=== PATIENT | male | born 1985 | race Caucasian/White ===

== ENCOUNTER 2017-01-15 10:04 | Day surgery (SDC) | payer BC ==
[~2017-01-15] VITALS: Ht 188 cm; Wt 91.4 kg
--- NOTE | 2017-01-28 08:40 | OR ---
ADMIT: 01/15/2017 RM/LOC: [facility] MR#: [id number] [address] ANDREA LEYVA [address] [place] [address] Operative/Delivery Room Report SEX: M AGE: 31 : 1985 SURGERY DATE: 01/15/2017 SURGEON: Charly Sabillon MD POSTOPERATIVE DIAGNOSIS: Herniated nucleus pulposus with severe pain and radiculopathy on the left at lumbar 4-5. POSTOP DIAGNOSIS: Herniated nucleus pulposus with severe pain and radiculopathy on the left at lumbar 4-5. PROCEDURE: 1. Micro lumbar discectomy 4-5 with intraoperative use of microscopy with microsurgical dissection technique with direct visualization of the decompressed elements after fashioning a hemilaminectomy/foraminotomy at lumbar 4-5 on the left. 2. Intraoperative fluoroscopy with physician interpretation of film. ENDOSCOPY TECHNICIAN: Nicole Farnsworth APRN. DESCRIPTION OF PROCEDURE: After gaining informed consent, the patient was taken to the operative theater, placed under general endotracheal anesthesia in a supine position and turned prone on a Stan table. All pressure points purposely padded prior to performing the procedure. He was prepped and draped in the sterile fashion. A time-out was utilized to ascertain the correct site and side of surgery as well as other pertinent patient historical information. Counts were obtained at the beginning and end of case with no change betwixt the two. Antibiotics given within 1 hour of the incision. Fluoroscope was brought in the field, and the left stab incision was fashioned, and tubular retractor system was passed down over top left lumbar 4- 5 level. The microscope was brought in the field. The rest of the case was done with microsurgical dissection technique. The high speed drill and various curettes, rongeurs, were used to resect the ligamentum flavum and lamina lumbar 4-5 extending out over the neural foramen, revealing the shoulder of the L5 nerve root. Once this was visualized, it was very cautiously medialized and herniated disc material was visualized, this was then resected pulling out 2 to 3 fairly large pieces and subsequent smaller pieces as well. Once this was completed, there was no sign of further compression of the nerve root and attention was turned to gaining pristine hemostasis and closure. The wound was closed with simple interrupted 0 Vicryl in the thoracodorsal fascia, simple inverted interrupted 2-0 Vicryl in the hypodermic tissue, and subcuticular 3-0 Stratafix on the skin with Steri- ADMIT: 01/15/2017 RM/LOC: [facility] MR#: [id number] [address] ANDREA LEYVA [address] [place] [address] Operative/Delivery Room Report SEX: M AGE: 31 : 1985 Strips over that. Ms. Farnsworth assisted with suction, retraction, and closure at the end of the case. COMPLICATIONS: None. ESTIMATED BLOOD LOSS: Charted. SPECIMEN: Disks. DISPOSITION: Extubated and taken to the postanesthesia care unit. Charly Sabillon MD/ raul JOB #: [id number] CC: Charly Sabillon, Attending Physician NO FAMILY PHYSICIAN, Family Physician
== END 2017-01-15 14:55 | disposition home or self-care (01) ==
LOC: SSS 10:04
PROC: 0SB20ZZ Excision of Lumbar Vertebral Disc, Open Approach (ICD-10-PCS; principal; 2017-01-15)
PROC: 01NB0ZZ Release Lumbar Nerve, Open Approach (ICD-10-PCS; principal; 2017-01-15)
DX: M51.16 Intervertebral disc disorders with radiculopathy, lumbar region (principal); M48.06 Spinal stenosis, lumbar region; Z98.890 Other specified postprocedural states; Z79.891 Long term (current) use of opiate analgesic